=== PATIENT | male | born 2005 | race Caucasian/White ===

== ENCOUNTER 2024-10-08 13:02 | Emergency (ER) | payer BC, SELFPAY ==
[2024-10-08 13:22] VITALS: BP 115/68; PULSE 87; RESP 18; TEMP 36.7; O2SAT 99; BMI 26.9
--- NOTE | 2024-10-08 13:49 | CTR_ITS ---
PROCEDURE INFORMATION: Exam: CT Maxillofacial Without Contrast Exam date and time: 10/08/2024 1:58 PM Age: 19 years old Clinical indication: Injury or trauma; Other: Baseball to left eye; Additional info: Baseball to left eye/cheek. High speed TECHNIQUE: Imaging protocol: Computed tomography of the face without contrast. Radiation optimization: All CT scans at this facility use at least one of these dose optimization techniques: automated exposure control; mA and/or kV adjustment per patient size (includes targeted exams where dose is matched to clinical indication); or iterative reconstruction. COMPARISON: CT head wo con* [id number] 10/08/2024 1:58 PM RADIATION DOSE METRICS: Total DLP (mGy-cm): 640.3 FINDINGS: Paranasal sinuses: There is nondisplaced fracture of the anterior wall of the left maxillary sinus. Comminuted minimally displaced fracture of the medial wall of the left maxillary sinus. Orbital cavities: Orbits are normal. Globes are unremarkable. Bones: Comminuted fracture of bilateral nasal bones with right side displacement. Nondisplaced fracture of the left lamina papyracea. Soft tissues: There is left cheek swelling and left periorbital swelling/hematoma. There is soft tissue swelling overlying the nasal bones. CT/CT facial bones wo con* [id number] IMPRESSION: Comminuted fracture of both nasal bones displaced to the right side, nondisplaced fracture of the left lamina papyracea, anterior and medial wall of the left maxillary sinus with fluid in the left maxillary sinus.
--- NOTE | 2024-10-08 13:49 | CTR_ITS ---
PROCEDURE INFORMATION: Exam: CT Head Without Contrast Exam date and time: 10/08/2024 1:58 PM Age: 19 years old Clinical indication: Injury or trauma; Other: Baseball to left eye; Blunt trauma (contusions or hematomas); Additional info: Baseball to left face, high speed TECHNIQUE: Imaging protocol: Computed tomography of the head without contrast. Radiation optimization: All CT scans at this facility use at least one of these dose optimization techniques: automated exposure control; mA and/or kV adjustment per patient size (includes targeted exams where dose is matched to clinical indication); or iterative reconstruction. COMPARISON: CT facial bones wo con* [id number] 10/08/2024 1:58 PM RADIATION DOSE METRICS: Total DLP (mGy-cm): 1250.2 FINDINGS: Brain: Normal. No hemorrhage. Unremarkable white matter. No mass effect. Cerebral ventricles: No ventriculomegaly. Paranasal sinuses: Fluid in the ethmoid air cells and left maxillary sinus. Mastoid air cells: Visualized mastoid air cells are well aerated. Bones: Partially included facial bones fractures. Soft tissues: Unremarkable. CT/CT head wo con* [id number] IMPRESSION: No acute intracranial posttraumatic changes.
[2024-10-08 13:56] VITALS: RESP 18
[2024-10-08] MEDS: morphine 4 mg/mL SDV 1 mL 2 MG IVP (13:56)
--- NOTE | 2024-10-08 14:05 | ED_ITS ---
HPI - Head Injury 2 General: Chief complaint: Head Injury Stated complaint: Injury to nose - hit by baseball Time Seen by Provider: 10/08/24 13:31 Source: patient History of Present Illness: Patient is a 19-year-old male who was playing baseball game and while at bat the pitcher threw a baseball high in the inside which struck him in the left cheek/face/nose region. He has obvious deformity noted to the nose and swelling to the left cheek with superficial laceration. Patient reports his tetanus is up-to-date. He denies any double vision or blurred vision. He has swelling noted to the face. He denies any other injury or trauma. He does complain of a mild headache. MD Complaint: head injury Onset (ago): hour(s) (1) Mechanism of Injury: sports related injury Place: outdoors Loss of Consciousness: no Location of injury: face Severity: moderate Other Injuries: none Associated symptoms: Reports no associated symptoms; Deny nausea or vomiting Related Data Home Medications ?Medication ?Instructions ?Recorded ?Confirmed acetaminophen 325 mg tablet 325 mg PO QID PRN Pain 09/0310/08/24 Previous Rx's ?Medication ?Instructions ?Recorded docusate sodium 100 mg capsule 100 mg PO BID #20 caps 10/08/24 (Colace) hydrocodone 5 mg-acetaminophen 325 1 tab PO Q8H PRN pa in #5 tabs 10/08/24 mg tablet Allergies Allergy/AdvReac Type Severity Reaction Status Date / Time oseltamivir (From Tamiflu) Allergy ALGY-Hives Verified 10/08/24 13:30 Review of Systems 2 Const: Denies: fever(s), chills or diaphoresis Card: Denies: chest pain Resp: Denies: dyspnea GI: Denies: abdominal pain, nausea or vomiting Skin/Breast: Denies: rash Neuro: Reports: headache(s) Physical Exam 2 Const: COMMON NORMALS: no acute distress, average body habitus, alert and well nourished GENERAL APPEARANCE: cooperative ORIENTATION/CONSCIOUSNESS: Yes awake HENMT: COMMON NORMALS: head/scalp not atraumatic HEAD & SCALP: not atraumatic HEAD IMAGES: 1. Moderate soft tissue swelling to the left cheek and paranasal region with deformity of the nose rightward. Dried epistaxis in each nostril without any continued epistaxis. No hyphema. Extraocular movements are intact and full. No limitation with vertical gaze. Patient has approximately 4 cm superficial laceration that is curved along the left infraorbital region consistent with the seam of the ball and some soft tissue swelling. OTHER: No septal hematoma identified. Eye: COMMON NORMALS: Equal, round and reactive pupils present, EOMs intact bilaterally and conjunctivae normal CONJUNCTIVA: Yes conjunctivae normal P UPIL: Yes Equal, round and reactive pupils present Neck/C-Spine: GENERAL: Yes normal visual inspection Resp: COMMON NORMALS: normal respiratory effort, No retractions and No use of accessory muscles Cardio: COMMON NORMALS: regular rhythm and Peripheral pulses 2+ throughout RHYTHM: regular rhythm PERIPHERAL PULSES: Peripheral pulses 2+ throughout GI: COMMON NORMALS: Soft to palpation and non-tender PALPATION: Yes Soft to palpation Extremity: COMMON NORMALS: full ROM and no pedal edema Neuro: COMMON NORMALS: no focal motor deficits SENSORIUM/ORIENTATION: Yes alert Skin: COMMON NORMALS: no rashes or lesions noted GENERAL SKIN EXAM: no rashes or lesions noted Procedures Laceration Laceration 1: Site: face Side (If applicable): left Size (cm): 4 Description: irregular Depth: simple, single layer Local Anesthetic: lidocaine 1% and with epi Amount of anesthesia used (mL): 4 Pre-repair: irrigated extensively and deep structures intact Skin layer closed with: nylon Size (cm): 6-0 Number of sutures: 6 Technique: simple, interrupted Course 2 Vital Signs: Vital signs: Vital Signs Temperature 98.0 F 10/08/24 13:22 Pulse Rate 88 10/08/24 16:28 Respiratory Rate 16 10/08/24 16:28 Blood Pressure 133/73 10/08/24 16:28 Pulse Oximetry 99 10/08/24 16:28 Oxygen Delivery Me thod Room Air 10/08/24 16:00 MDM - Head Injury Medcial Decision Making 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 He has obvious swelling and ecchymosis to the left side of the periorbital region and the nose. He has deviation of the nose to the right with obvious nasal bone fracture. Head CT was obtained which is negative for acute findings. CT face shows maxillary sinus fractures and bilateral nasal bone fractures with deviation to the right. Patient has a approximately 4 cm laceration to the left cheek/infraorbital region that is curved. It was anesthetized and irrigated with saline. 5 simple ruptured sutures were used for reapproximation of this laceration. He tolerated this well without any complications. I spoke with Dr. Oro with ENT trauma surgery on-call at [facility] as we do not have ENT availability on-call at this time. He recommends [place] nasal spray 2-3 times daily, stool softeners to prevent Valsalva, no antibiotics indicated and wants to follow-up with the patient in 1 week to see how he is doing and decide on surgical intervention necessary at that time or not. Patient is from [place] and his family is here from [place]. They are discussing taking him back to [place] where he can see an ENT at that location. [facility] does have his contact information and plans to follow-up with him this week regarding scheduling an appointment. Family is high functioning and understands the needs for close outpatient follow-up. I discussed limiting any nose blowing or sneezing out of his nose. Family will be discharged with the disc showing the CT images. They understand the importance of follow-up. Sutures will need to be removed in 5 to 7 days. Patient is recommended supportive care in the meantime. To be prescribed some hydrocodone for pain and was provided a dose of morphine here for acute pain. We discussed concussion protocol and recommendations for refraining from any contact sports until further cleared by his PCP, sports medicine physician, and ENT. Differential Diagnosis Likely closed head injury Lab Data Radiology Impressions Face CT 10/08/24 13:49 IMPRESSION: Comminuted fracture of both nasal bones displaced to the right side, nondisplaced fracture of the left lamina papyracea, anterior and medial wall of the left maxillary sinus with fluid in the left maxillary sinus. Head CT 10/08/24 13:49 IMPRESSION: No acute intracranial posttraumatic changes. All radiology interpretation(s) finalized by discharge Discharge Plan Discharge Patient Disposition: Home Clinical Impression: Closed head injury, Closed fracture of left maxillary sinus, Fracture of nasal bone, Periorbital ecchymosis of left eye Condition: Stable Prescriptions: New hydrocodone-acetaminophen 5-325 mg tablet 1 tab PO Q8H PRN (Reason: pain) Qty: 5 0RF docusate sodium [Colace] 100 mg capsule 100 mg PO BID Qty: 20 0RF No Action acetaminophen 325 mg Tablet 325 mg PO QID PRN (Reason: Pain) Discharge Orders: Discharge ED (Routine); Ordered 10/08/24 Ordered By: Isaac Kohler Patient Instructions: Care For Your Stitches (ED), Nasal Fracture (ED), Facial Laceration (ED), Opioid Safety, Pain Management Activity Restrictions/Additional Instructions: Follow-up with ENT next week. [facility] should be contacting you with an appointment to follow-up with them next week. You can follow-up with any other ENT of your choice if you desire. [facility] - [address] [place] [id number] [address] Phone:? Keep your stitches clean and dry. You may apply double antibiotic ointment or Vaseline to the wound to help with healing. Use saline nasal spray 1 to 2 sprays in each nostril 3-4 times daily to help maintain moisture to the nasal passage. Avoid sneezing through your nose or any strenuous activity. Use stool softeners to help maintain soft stool so that you do not strain. No nose blowing. Return to the emergency department if you have any new or worsening symptoms or have any other concerns. Print Language: Persian Coding Level of Care Code ED Biomedical Service Engineer for Gina Hernandez
--- NOTE | 2024-10-08 14:19 | PC.NURSE ---
this nurse assumed pt care at 1400 from Jessica ROMERO.
[2024-10-08 14:20] VITALS: BP 123/69; PULSE 93; RESP 16; O2SAT 99
[2024-10-08 15:00] VITALS: BP 129/78; PULSE 92; RESP 16; O2SAT 100
[2024-10-08] MEDS: oxymetazoline 0.05% Nasal Spray 15 mL 2 SPRAY NOSTRIL-B (15:23)
[2024-10-08] MEDS: lidocaine-epi 1% 20 mL INJ 10 ML INJECTION (15:23)
[2024-10-08 16:00] VITALS: BP 133/73; PULSE 84; RESP 16; O2SAT 96
[2024-10-08 16:28] VITALS: BP 133/73; PULSE 88; RESP 16; O2SAT 99
== END 2024-10-08 16:28 | disposition home or self-care (01) ==
PROVIDERS: Emergency Provider Student in an Organized Health Care Education/Training Program
DX: S02.19XA Other fracture of base of skull, initial encounter for closed fracture (principal); S09.8XXA Other specified injuries of head, initial encounter; S02.2XXA Fracture of nasal bones, initial encounter for closed fracture; S05.12XA Contusion of eyeball and orbital tissues, left eye, initial encounter; S01.81XA Laceration without foreign body of other part of head, initial encounter; W21.03XA Struck by baseball, initial encounter; Y93.64 Activity, baseball
CPT/HCPCS: 12013; 36415; 70450; 70486; 96374; 99285; 99291; J2270